=== PATIENT | female | born 1940 | race African-American/Black ===

== ENCOUNTER 2016-11-09 20:48 | Inpatient (IN) | payer MEDICARE, OTHER ==
--- NOTE | ~2016-11-09 | DS ---
Discharge Summary [facility] [address] [place]. [address] NAME: ROB HERNANDEZ : 38 STATUS : ADM IN [facility]#: [id number] AGE: 76 ADM/REG DATE : 11/09/16 MR#: [id number] REPORT SERV DATE: 11/16/16 DICTATED BY: Neptali FIERRO DATE: 11/16/16 REPORT STATUS : Draft TRANSCRIBED BY: MODL DATE: 11/16/16 ADMISSION DATE: 11/09/2016 DISCHARGE DATE: 11/16/2016 DIAGNOSES AT DISCHARGE: 1. Urinary tract infection, present on admission, resolved. 2. Encephalopathy, resolved. 3. Chronic kidney disease. 4. Hypertension. 5. Coronary disease. 6. Chronic obstructive pulmonary disease. CONSULTS: None. PROCEDURES: None. BRIEF SUMMARY: A 76-year-old female patient was admitted with altered mental status and evidence of acute UTI. The patient initially started on IV Rocephin. Culture ultimately grew E coli that was pansensitive. She was changed to oral Duricef. She did complete her entire antibiotic course during her hospital stay. Seen and evaluated by Physical Therapy, recommendations were for group home. The patient was ultimately approved for [facility] on 11/16 and was transitioned to [facility] in stable condition. Other medication issues include the following, her lisinopril was discontinued due to acute kidney injury. She was at her baseline kidney function at discharge and will remain off this medication. Per recommendations of the pharmacy, her home Wellbutrin was changed from 400 once daily to 200 mg b.i.d., this will be reflected on her discharge MAR. She would follow up with her primary care provider in approximately two to three weeks after discharge from [facility]. [facility] Neptali Fierro M.D. / [id number] CC: Jef Holland M.D.
--- NOTE | ~2016-11-09 | HP ---
History And Physical [place] [address] [place]. [address] NAME: ROB HERNANDEZ : 38 STATUS : ADM Ирина PAT#: [id number] AGE: 76 ADM/REG DATE : 11/09/16 MR#: [id number] REPORT SERV DATE: 11/10/16 DICTATED BY: JACY CHAUDHRY DATE: 11/09/16 REPORT STATUS : Draft TRANSCRIBED BY: MODL DATE: 11/09/16 DATE OF ADMISSION: 11/09/2016 CHIEF COMPLAINT: Fall with confusion. HISTORY OF PRESENT ILLNESS: The patient is a 76-year-old female with past medical history of hypertension, coronary artery disease, heart failure with improved EF from 45% to 55%, COPD history, non-O2 dependent, dementia, who presents after having progressive generalized weakness, mild confusion that has been happening over last 24 hours. Last night, she had fall and was on floor until this morning when the EMS helped her to get up. She did have slurred speech and a little bit confusion at this time, does have borderline dementia, who is accompanied by daughter who is at bedside, reports that over the last month she has been staying with her in [place], has been transitioned of moving back to [place], but over the last week, she had been back home with her friends and caregivers. Today the patient was found down since last night and mental status symptoms were noted with slurring of speech and increased confusion. When discussing with the patient, symptoms have almost resolved. Symptoms have been intermittent, moderate severity. The patient denied any pain or radiating symptoms did have increased weakness and decreased p.o. intake over the last 24 to 48 hours, but additionally over the last month where she may have had decreased p.o. intake or fluid intake per daughter retrospectively thinking has been having good urine output. There are no worsening symptoms or relieving symptoms. Symptoms are resolved at this point. REVIEW OF SYSTEMS: GENERAL: No fevers, but does have weakness. EYES: No visual pain or eye pain or visual changes. ENT: No sore throat or congestion. NEUROLOGIC: Did have confusion. No loss of consciousness. SKIN: No rashes or bruising. RESPIRATORY: No shortness of breath or dyspnea on exertion. CARDIOVASCULAR: No chest pain or palpitations. GASTROINTESTINAL: Occasional constipation with resultant diarrhea every 10 days. GENITOURINARY: No dysuria or frequency reported. Has had slightly darker urine. MUSCULOSKELETAL: No myalgias or arthralgias. ENDOCRINE: Does have mildly increased fatigue, but no polyuria. HEMATOLOGIC: No bleeding or bruising. IMMUNOLOGIC: No rhinorrhea. PSYCH: No anxiety or confusion currently, but did have confusion and slight hallucinations for the last few days with floaters. Has had Ophtho evaluation most recently in [place]. PAST MEDICAL HISTORY: COPD, heart failure with preserved EF now 55%, myocardial infarction, hypertension, dementia, and hyperlipidemia. PAST SURGICAL HISTORY: Hysterectomy, hip and knee surgery. SOCIAL HISTORY: Currently and lives alone. No smoking, alcohol, or illicits. History And Physical [address] [address] NAME: ROB HERNANDEZ : 38 STATUS : ADM Ирина PAT#: [id number] AGE: 76 ADM/REG DATE : 11/09/16 MR#: [id number] REPORT SERV DATE: 11/10/16 DICTATED BY: JACY CHAUDHRY DATE: 11/09/16 REPORT STATUS : Draft TRANSCRIBED BY: GRETTA DATE: 11/09/16 Retired. Accompanied with daughter. In transition of possibly moving back to [place] with her daughter. FAMILY HISTORY: Daughter is in good health. No acute diseases at this time. DIAGNOSTIC DATA: EKG: Rate 89, normal sinus rhythm, QTc 430. ALLERGIES: BRAZIL NUTS, PENICILLIN, LACTOSE, AND ONION. HOME MEDICATIONS: Aspirin, Wellbutrin, Prinivil, Centrum, pravastatin, and Effexor. LABORATORY DATA: Urinalysis: Large leukocyte esterase with 159 wbc's. CMP: BUN and creatinine are 24 and 1.67, glucose 139, CPK 514, troponin negative. CBC grossly within normal limits. ASSESSMENT AND PLAN: 1. Urinary tract infection, symptomatic. 2. Acute encephalopathy. 3. Mild rhabdomyolysis. 4. Chronic kidney disease. 5. Coronary artery disease history. 6. Hypertension. 7. Chronic obstructive pulmonary disease. 8. Constipation. PLAN: 1. For UTI, symptomatic, Rocephin. Mental status has improved with IV fluids and antibiotics started in the emergency room. We will continue to monitor clinically overnight. 2. Acute encephalopathy, treat underlying UTI. Does have baseline dementia, but symptoms appear to be resolving back to her baseline with treatment of above. 3. Mild rhabdo. IV fluids. Treat UTI. Did have fall. Will need PT and OT evaluation. Social work evaluation. 4. CKD, mildly above baseline. Monitor fluid balance and IV fluids. 5. Coronary artery disease. EF 55%. Continue home medications. 6. Hypertension, on FLORI inhibitor. 7. COPD history. O2 as needed p.r.n. and DuoNebs p.r.n. 8. Constipation. Check KUB and stool softeners. 9. Disposition pending. Followup of CPK, KUB, and BMP in a.m. PT and OT evaluation. All questions answered of the patient and family at bedside. [facility] Jacy Hou History And Physical [address] [address] NAME: ROB HERNANDEZ : 38 STATUS : ADM Ирина PAT#: [id number] AGE: 76 ADM/REG DATE : 11/09/16 MR#: [id number] REPORT SERV DATE: 11/10/16 DICTATED BY: JACY CHAUDHRY DATE: 11/09/16 REPORT STATUS : Draft TRANSCRIBED BY: GRETTA DATE: 11/09/16 MD Sang / [id number] CC: Filippo Benjamin Jr, MD Julie M Bilbrey, M.D.
[2016-11-09 17:55] LABS: BASOPHILS 0.3 %; BASOPHILS ABSOLUTE 0.02 10/3/uL (0.0-0.16); EOSINOPHILS 0.9 %; EOSINOPHILS ABSOLUTE 0.06 10/3/uL (0.0-0.53); ER CBC TAT 0 Hrs 08 Mins; HEMATOCRIT 39.9 % (36.0-48.0); IMMATURE GRANULOCYTES 0.1 %; IMMATURE GRANULOCYTES ABSOLUTE 0.01 10/3/uL (0.0-0.11); LYMPHOCYTES 17.4 %; LYMPHOCYTES ABSOLUTE 1.22 10/3/uL (0.67-4.30); MANUAL DIFF NO %; MEAN CORPUS HGB CONC 32.6 g/dL (32.0-36.0); MEAN CORPUSCULAR VOLUME 91.9 fL (80-100); MEAN PLATELET VOLUME 9.4 fL (9.2-13.0); MONOCYTES 6.7 %; MONOCYTES ABSOLUTE 0.47 10/3/uL (0.21-1.20); NEUTROPHILS 74.6 %; NEUTROPHILS ABSOLUTE 5.24 10/3/uL (2.02-8.40); PLATELET COUNT 178 10/3/uL (150-400); RBC DISTRIBUTION WIDTH 14.1 % (12.0-16.0); RED CELL COUNT 4.34 10/6/uL (4.0-5.6)
[2016-11-09 18:15] LABS: BUN (BLOOD UREA NITROGEN) 24 MG/DL (6-23); CHLORIDE, SERUM 106 MMOL/L (96-112); CO2 (CARBON DIOXIDE) 28 MMOL/L (24-34); CREATININE 1.67 MG/DL (0.55-1.02); GFR AFRICAN AMERICAN 34 ML/MIN (>=60); GFR NON AFRICAN AMERICAN 29 ML/MIN (>=60); POTASSIUM, SERUM 4.7 MMOL/L (3.5-5.3); SGOT(AST) 35 U/L (5-40); SGPT(ALT) 24 U/L (5-65); SODIUM, SERUM 141 MMOL/L (135-148); TOTAL BILIRUBIN 0.6 MG/DL (0-1.2); TROPONIN I <0.02 NG/ML (<0.05)
[2016-11-09 18:16] LABS: A/G RATIO 1.1 (0.7-1.9); ALBUMIN 4.1 G/DL (3.5-5.0); ALKALINE PHOSPHATASE 89 U/L (45-117); CALCIUM, SERUM 9.6 MG/DL (8.5-10.4); GLOBULIN 3.6 G/DL (2.5-4.1); GLUCOSE, SERUM 131 MG/DL (60-99); TOTAL PROTEIN 7.7 G/DL (6.0-8.5)
[2016-11-09 20:11] LABS: CPK 514 U/L (0-200)
[2016-11-09 20:31] LABS: ASCORBIC ACID (UR NOT ORDER) 40 (NEG); BILIRUBIN, URINE NEGATIVE (NEG); ER URINALYSIS TAT 0 Hrs 14 Mins; KETONE, URINE TRACE MG/DL (NEG); LEUKOCYTE ESTERASE(NOT OR LARGE (NEG); NITRITE (URINE) NEG (NEG); WBC (NOT ORDERED) (RFLEX) 159 (0-5)
[~2016-11-09 20:48] MED LIST: ARICEPT10 PO; ASAB PO; COREG3; COREG3 PO; DEPAKOT500 PO; DSS PO; DULERA 100 MCG/13 GM INH; EFFEXXR37 PO; EFFEXXR75 PO; HALF81 PO; LIPITOR20 PO; LOP25 PO; MIRALAXPKT PO; MULTIPLE VIT; NAMENDA10 MG PO; NITROSTAT0.4 MG SL; NORCO1 TA1 PO; NORCO1 TAB PO; PEP20 PO; PLAVIX PO; PRAVACHOL40 MG PO; PRAVACHOL80 MG PO; PRIN5; PRIN5 PO; PROZAC40 MG PO; REMERON30 MG PO; TRAZ50 PO; ULTRAM50 PO; VICODINTAB PO; WELL100; WELLBUTRIN200 MG PO
[2016-11-09] MEDS ORDERED: ASAB PO (21:17)
[2016-11-09] MEDS ORDERED: WELLBUTRIN200 MG PO (21:17)
[2016-11-09] MEDS ORDERED: EFFEXXR75 PO (21:18)
[2016-11-09] MEDS ORDERED: PRIN5 PO (21:18)
[2016-11-09] MEDS ORDERED: CENTRUM PO (21:18)
[2016-11-09] MEDS ORDERED: PRAVACHOL80 MG PO (21:19)
[2016-11-10 03:58] LABS: BASOPHILS 0.3 %; BASOPHILS ABSOLUTE 0.02 10/3/uL (0.0-0.16); EOSINOPHILS 2.4 %; EOSINOPHILS ABSOLUTE 0.14 10/3/uL (0.0-0.53); HEMOGLOBIN 11.7 g/dL (12.0-16.0); IMMATURE GRANULOCYTES 0.2 %; IMMATURE GRANULOCYTES ABSOLUTE 0.01 10/3/uL (0.0-0.11); LYMPHOCYTES 33.2 %; LYMPHOCYTES ABSOLUTE 1.93 10/3/uL (0.67-4.30); MEAN CORPUS HGB CONC 33.1 g/dL (32.0-36.0); MEAN CORPUSCULAR HEMOGLOB 30.5 pg (26.0-34.0); MEAN CORPUSCULAR VOLUME 92.2 fL (80-100); MEAN PLATELET VOLUME 9.5 fL (9.2-13.0); MONOCYTES 7.7 %; MONOCYTES ABSOLUTE 0.45 10/3/uL (0.21-1.20); NEUTROPHILS 56.2 %; NEUTROPHILS ABSOLUTE 3.27 10/3/uL (2.02-8.40); PLATELET COUNT 170 10/3/uL (150-400); RED CELL COUNT 3.83 10/6/uL (4.0-5.6); WHITE BLOOD CELLS 5.8 10/3/uL (4.5-10.5)
[2016-11-10 04:00] LABS: HEMATOCRIT 35.3 % (36.0-48.0); MANUAL DIFF NO %
[2016-11-10 04:15] LABS: BUN (BLOOD UREA NITROGEN) 25 MG/DL (6-23); CHLORIDE, SERUM 114 MMOL/L (96-112); CO2 (CARBON DIOXIDE) 24 MMOL/L (24-34); CREATININE 1.47 MG/DL (0.55-1.02); GFR AFRICAN AMERICAN 39 ML/MIN (>=60); GFR NON AFRICAN AMERICAN 34 ML/MIN (>=60); POTASSIUM, SERUM 4.4 MMOL/L (3.5-5.3); SODIUM, SERUM 146 MMOL/L (135-148)
[2016-11-10 04:23] LABS: CALCIUM, SERUM 8.3 MG/DL (8.5-10.4); CPK 379 U/L (0-200); GLUCOSE, SERUM 96 MG/DL (60-99)
[2016-11-10 06:12] LABS: PROCALCITONIN <0.05 ng/mL (<0.5)
[2016-11-11 04:42] LABS: CALCIUM, SERUM 8.4 MG/DL (8.5-10.4); CHLORIDE, SERUM 114 MMOL/L (96-112); CO2 (CARBON DIOXIDE) 24 MMOL/L (24-34); CREATININE 1.32 MG/DL (0.55-1.02); GFR AFRICAN AMERICAN 45 ML/MIN (>=60); GFR NON AFRICAN AMERICAN 39 ML/MIN (>=60); GLUCOSE, SERUM 83 MG/DL (60-99); POTASSIUM, SERUM 4.6 MMOL/L (3.5-5.3); SODIUM, SERUM 146 MMOL/L (135-148)
[2016-11-11 04:43] LABS: BUN (BLOOD UREA NITROGEN) 20 MG/DL (6-23)
[2016-11-12 04:28] LABS: HEMATOCRIT 35.9 % (36.0-48.0); HEMOGLOBIN 12.1 g/dL (12.0-16.0)
[2016-11-12 04:41] LABS: CALCIUM, SERUM 8.7 MG/DL (8.5-10.4); CHLORIDE, SERUM 110 MMOL/L (96-112); CO2 (CARBON DIOXIDE) 24 MMOL/L (24-34); CREATININE 1.36 MG/DL (0.55-1.02); GFR AFRICAN AMERICAN 43 ML/MIN (>=60); GFR NON AFRICAN AMERICAN 37 ML/MIN (>=60); GLUCOSE, SERUM 81 MG/DL (60-99); POTASSIUM, SERUM 4.1 MMOL/L (3.5-5.3); SODIUM, SERUM 144 MMOL/L (135-148)
[2016-11-12 04:42] LABS: BUN (BLOOD UREA NITROGEN) 15 MG/DL (6-23)
[2016-11-15 04:16] LABS: BASOPHILS 0.6 %; BASOPHILS ABSOLUTE 0.03 10/3/uL (0.0-0.16); EOSINOPHILS 2.5 %; EOSINOPHILS ABSOLUTE 0.12 10/3/uL (0.0-0.53); HEMOGLOBIN 12.4 g/dL (12.0-16.0); IMMATURE GRANULOCYTES 0.2 %; IMMATURE GRANULOCYTES ABSOLUTE 0.01 10/3/uL (0.0-0.11); LYMPHOCYTES 43.1 %; LYMPHOCYTES ABSOLUTE 2.09 10/3/uL (0.67-4.30); MANUAL DIFF NO %; MEAN CORPUS HGB CONC 32.6 g/dL (32.0-36.0); MEAN PLATELET VOLUME 9.5 fL (9.2-13.0); MONOCYTES 9.3 %; MONOCYTES ABSOLUTE 0.45 10/3/uL (0.21-1.20); NEUTROPHILS 44.3 %; NEUTROPHILS ABSOLUTE 2.15 10/3/uL (2.02-8.40); PLATELET COUNT 191 10/3/uL (150-400); RBC DISTRIBUTION WIDTH 14.2 % (12.0-16.0); RED CELL COUNT 4.13 10/6/uL (4.0-5.6); WHITE BLOOD CELLS 4.9 10/3/uL (4.5-10.5)
[2016-11-15 04:29] LABS: BUN (BLOOD UREA NITROGEN) 17 MG/DL (6-23); CALCIUM, SERUM 8.9 MG/DL (8.5-10.4); CHLORIDE, SERUM 106 MMOL/L (96-112); CO2 (CARBON DIOXIDE) 28 MMOL/L (24-34); CREATININE 1.49 MG/DL (0.55-1.02); GFR AFRICAN AMERICAN 39 ML/MIN (>=60); GFR NON AFRICAN AMERICAN 34 ML/MIN (>=60); GLUCOSE, SERUM 92 MG/DL (60-99); PHOSPHORUS, SERUM 3.3 MG/DL (2.5-4.5); POTASSIUM, SERUM 4.6 MMOL/L (3.5-5.3); SODIUM, SERUM 143 MMOL/L (135-148)
== END 2016-11-16 18:31 | DRG 689 ==
LOC: ER 20:48 → CDU1 21:36 → CDU2 22:01
PROVIDERS: Emergency Medicine; Internal Medicine
DX: N39.0 Urinary tract infection, site not specified (principal); G93.41 Metabolic encephalopathy; M62.82 Rhabdomyolysis; J44.9 Chronic obstructive pulmonary disease, unspecified; F03.90 Unspecified dementia, unspecified severity, without behavioral disturbance, psychotic disturbance, mood disturbance, and anxiety; I12.9 Hypertensive chronic kidney disease with stage 1 through stage 4 chronic kidney disease, or unspecified chronic kidney disease; N18.3 Chronic kidney disease, stage 3 (moderate); I25.10 Atherosclerotic heart disease of native coronary artery without angina pectoris; B96.20 Unspecified Escherichia coli [E. coli] as the cause of diseases classified elsewhere; Z88.0 Allergy status to penicillin; Z79.82 Long term (current) use of aspirin
CPT/HCPCS: 71020; 74000; 80048; 80053; 81001; 82550; 83735; 84100; 84145; 84484; 85014; 85018; 85025; 87040; 87077; 87086; 87184; 87186; 93005; 96374; 97110-GP; 97116-GP; 97161-GP; 97165-GO; 99285; A9270-GY